=== PATIENT | male | born 1945 | race Caucasian/White ===

== ENCOUNTER 2018-06-25 16:16 | Emergency (ER) | payer OTHER, MEDICARE ==
[~2018-06-25] VITALS: Ht 167.6 cm; Wt 71.9 kg
[2018-06-25 17:09] LABS: BASOPHILS % (AUTO) 0.4 % (0-1); EOSINOPHILS # (AUTO) 0.2 X10'3 (0-0.9); EOSINOPHILS % (AUTO) 2.4 % (0-6); HEMATOCRIT 46.2 % (42.0-52.0); HEMOGLOBIN 16.4 g/dl (14.0-17.9); LYMPHOCYTES # (AUTO) 1.8 X10'3 (1.1-4.8); MEAN CORPUSCULAR HEMOGLOBIN 31.8 PG (27.0-31.0); MEAN CORPUSCULAR HGB CONC 35.5 % (33.0-36.5); MEAN CORPUSCULAR VOLUME 89.6 FL (78-98); MEAN PLATELET VOLUME 7.7 FL (7.4-10.4); MONOCYTES # (AUTO) 1.2 X10'3 (0-0.9); MONOCYTES % (AUTO) 16.1 % (2-12); NEUTROPHILS # (AUTO) 4.2 X10'3 (1.8-7.7); NEUTROPHILS % (AUTO) 57.1 % (42-75); PLATELET COUNT 200 X10'3 (140-440); RED BLOOD COUNT 5.16 X10'6 (4.70-6.10); RED CELL DISTRIBUTION WIDTH 14.4 % (11.5-14.5); WHITE BLOOD COUNT 7.4 X10'3 (4.5-11.0)
[2018-06-25 17:18] LABS: CLARITY,URINE CLEAR (Clear); COLOR,URINE YELLOW (Yellow); GLUCOSE, URINE NEGATIVE (Neg); KETONES,URINE NEGATIVE (Neg); LEUKOCYTE ESTERASE ,URINE NEGATIVE (Neg); NITRITES, URINE NEGATIVE (Neg); OCCULT BLOOD,URINE TRACE-LYSED (Neg); PH,URINE 5.5 (4.8-8.0); PROTEIN,URINE NEGATIVE (Neg); UROBILINOGEN,URINE 0.2 E.U/dL (0.2-1.0)
[2018-06-25 17:24] LABS: UA COLLECTION TYPE VOIDED
[2018-06-25 17:25] LABS: BACTERIA,URINE NONE SEEN /HPF (Neg); RBC,URINE 0-2 /HPF (0-2); SQUAMOUS EPITHELIAL CELL,UR FEW /LPF (FEW); WBC,URINE NONE SEEN /HPF (0-4)
[2018-06-25 17:28] LABS: ALANINE AMINOTRANSFERASE 37 U/L (12-78); ALBUMIN 4.2 G/DL (3.4-5.0); ALBUMIN/GLOBULIN RATIO 1.3 (1.1-1.5); ALKALINE PHOSPHATASE 92 IU/L (46-116); ANION GAP 8 (8-16); ASPARTATE AMINO TRANSFERASE 29 U/L (10-37); BILIRUBIN,TOTAL 1.7 MG/DL (0.1-1.0); BLOOD UREA NITROGEN 38 MG/DL (7-18); CALCIUM 8.8 MG/DL (8.5-10.1); CHLORIDE 98 MMOL/L (99-107); GLUCOSE 89 MG/DL (70-104); POTASSIUM 3.1 MMOL/L (3.5-5.1); SODIUM 134 MMOL/L (135-145); TOTAL CARBON DIOXIDE 27.8 MMOL/L (24-32); TOTAL PROTEIN 7.5 G/DL (6.4-8.2); eGFR 35 ML/MIN
[2018-06-25] MEDS ORDERED: potassium Cl oral solution 20 MEQ/15 ML PO ONE (17:40)
[2018-06-25 18:01] VITALS: BP 105/89
[2018-06-25 18:46] LABS: ANISOCYTOSIS 1+; PLATELET ESTIMATE NORMAL; SPHEROCYTES 1+
== END 2018-06-25 18:03 | disposition home or self-care (01) ==
LOC: ER 16:17
DX: E87.6 Hypokalemia (principal); N18.3 Chronic kidney disease, stage 3 (moderate); I25.10 Atherosclerotic heart disease of native coronary artery without angina pectoris; I25.2 Old myocardial infarction; Z95.1 Presence of aortocoronary bypass graft
CPT/HCPCS: 36415; 80053; 81001; 85025; 99284

== ENCOUNTER 2025-01-26 10:45 | Outpatient (CLI) | payer OTHER | END 2025-01-26 23:59 | disposition home or self-care (01) | LOC: CARD DIAG 10:45 | PROVIDERS: ATTEND Chiropractor | DX: I08.8 Other rheumatic multiple valve diseases (principal); I25.89 Other forms of chronic ischemic heart disease; I10 Essential (primary) hypertension; R00.1 Bradycardia, unspecified | CPT/HCPCS: 93306 ==

== ENCOUNTER 2025-04-24 09:38 | Outpatient (CLI) | payer OTHER ==
--- NOTE | 2025-04-24 11:24 | VASCULAR REPORT ---
LEFT Upper Extremity Venous Duplex Clinical History: Left arm swelling Comparison: None Findings: Duplex Doppler evaluation of the venous system of the LEFT lower neck and upper extremity including c olor Doppler and spectral/pulsed waveform analysis was performed. Acute occlusive thrombus in the left IJ, subclavian, near occlusive thrombus in the left axillary vei n. Remainder of the vein appears patent. Impression: Left upper extremity VT. If clinical concern/symptoms persist or worsen, short-interval follow-up study is suggested. Critical Result: DVT Findings discussed with [facility] at 04/24/2025 11:21 AM, and acknowledged receip t and understanding of the findings. ..
== END 2025-04-24 23:59 | disposition home or self-care (01) ==
LOC: VAS 09:38
PROVIDERS: ATTEND Internal Medicine Cardiovascular Disease
DX: I82.622 Acute embolism and thrombosis of deep veins of left upper extremity (principal); R60.9 Edema, unspecified
CPT/HCPCS: 93971